=== PATIENT | male | born 1990 | race Caucasian/White ===

== ENCOUNTER 2016-11-07 19:26 | Emergency (ER) | payer MEDICAID ==
[2016-11-07 19:26] VITALS: BMI 32.3
--- NOTE | 2016-11-07 19:47 | DIRPT ---
CLINICAL DATA: 25-year-old male with a history of cough and congestion. Shortness of breath. EXAM: CHEST - 2 VIEW COMPARISON: 08/04/2015 FINDINGS: Cardiomediastinal silhouette projects within normal limits in size and contour. Ill-defined opacity at the right medial base, more pronounced than the comparison study. No displaced fracture. Unremarkable appearance of the upper abdomen. IMPRESSION: Ill-defined opacity at the right medial base, worrisome for infection given the history. Signed, Lester Miller DO [facility] Electronically Signed By: Lester Miller D.O. On: 11/07/2016 19:44
[2016-11-07] MEDS ORDERED: ALBUTEROL 6.7 GM MDI INH ONE (20:04)
[2016-11-07 20:05] VITALS: BP 145/99; PULSE 89; TEMP 98.5
--- NOTE | 2016-11-07 20:07 | EDPRACDOC ---
- General Information Stated Complaint: COUGH/CONGESTION Time Seen by Provider: 11/07/16 20:01 Information Source: Patient Home Medications: Home Medications Azithromycin [Zithromax] 250 mg PO DAILY #6 tablet 11/07/16 Prednisone [Deltasone, Orasone] 20 mg PO DAILY #20 tab 11/07/16 Promethazine Dextromethorphan [Phenergan DM] 5 ml PO Q4H PRN #120 ml 11/07/16 Allergies/Adverse Reactions: Allergies Allergy/AdvReac Type Severity Reaction Status Date / Time hydrocodone Allergy Rash-Genera Verified 10/26/16 17:27 lized Latex, Natural Rubber Allergy Rash-Genera Verified 10/26/16 17:27 lized - History of Present Illness Onset: 2 weeks HPI: Pt c/o fever, chills, congestion, cough, sob, nausea x 2 weeks. Denies earache, sore throat, abd pain, changes in bowel or bladder, rash. Current Symptoms: Reports: Cough, Fever, Nasal Symptoms, Sore Throat, Nausea Shortness of Breath: Mild Cough: Reports: Productive, Yellow Rhinorrhea: Reports: Clear Ear Symptoms: Reports: Earache Fever Severity/Quality: Reports: low grade Oral Intake: Normal Urinary Output: Normal Relevant History of: Asthma Associated Signs & Symptoms:: Reports: Cough, Headache, Nasal Symptoms, Sore Throat, Nausea ED Past Medical History - History Reviewed Yes Nurses notes reviewed and agree except as marked - Patient Medical History Respiratory History: Reports: Asthma Psychological History: Denies: Depression Surgical History: Reports: Other (HIP SURGERY) - Social Medical History Smoking Status: Heavy tobacco smoker (5 or more cigarettes/day or daily pipe/ cigar) ETOH: None Substance Abuse: None EDM Review of Systems - Review of Systems Constitutional: Fever Ears: No Symptoms Reported. negative: Pain, Hearing Loss, Drainage, Ear Pulling Throat: No Symptoms Reported. negative: Pain, Swelling Nose: Congestion Mouth: No Symptoms Reported. negative: Pain, Drooling Respiratory: Cough, Shortness of Breath Cardiovascular: No Symptoms Reported. negative: Chest Pain, Palpitations, Syncope, Edema, Orthopnea, PND, Skin Mottling, Cyanosis Gastrointestinal: Nausea Genitourinary: No Symptoms Reported. negative: Dysuria, Hematuria, Frequency, Discharge, Bleeding, Testicular Pain, Neurological: No Symptoms Reported. negative: Headache, Dizziness, Seizure, Numbness, Weakness, Speech Difficulty, Gait Difficulty Musculoskeletal: No Symptoms Reported. negative: Neck, Chestwall, Ribs, Back, Shoulder, Arm, Elbow, Forearm, Wrist, Hand, Pelvis, Hip, Femur, Knee, Leg, Ankle , Foot Integumentary: No Symptoms Reported. negative: Itching, Rash, Bruising, Wound Allergic/Immunologic: No Symptoms Reported. negative: Hives, Itching Hematologic: No Symptoms Reported. negative: Lymphadenopathy, Easy Bruising, Easy Bleeding Psychiatric: No Symptoms Reported. negative: Anxiety, Depression, Hallucinations, Insomnia, Suicidal - Physical Exam Constitutional: Alert Oriented to: Time, Person, Place Last recorded Vital Signs: Last Vital Signs Temp 98.5 F 11/07/16 20:03 Pulse 89 11/07/16 20:03 Resp 20 11/07/16 20:03 BP 145/99 11/07/16 20:03 Pulse Ox 97 11/07/16 20:03 Oxygen Pulse Oxygen Saturation 97 O2 Device Oxygen Flow Rate Fraction of Inspired Oxygen ( FIO2) - HEENT Head: Normal ( normocephalic) Eye Exam: Normal (PERRL, EOMI, Sclera white) Oropharynx: Normal (Pharynx:Moist without exudate,Gums-no swelling) Tympanic Membrane: Normal ENT EAC: Normal Nose: Congestion Neck: Normal (FROM, trachea at midline) - Respiratory/Cardiovascular Respiratory: Rales Cardiovascular: Normal - GI Auscultation: Normal (NABS) Palpation: Normal (Soft,No rebound or guarding, non distended) Tenderness: Non tender - Musculoskeletal Back: Normal (Non-Tender) Extremities: Normal (Normal tone, Pulses 2+ No cyanosis or edema, FROM) - Integumentary Skin: Normal, Warm, Dry Lymphatics: Normal (no adenopathy) - Neurologic Memory Impaired: Normal Motor Function: Normal (Normal tone, Pulses 2+ No cyanosis or edema, FROM) Mood Description: Normal Perception: Normal - Differential Diagnosis Bronchitis, Pneumonia, URI - Diagnostic Imaging Chest Image interpreted by: Radiologist IMPRESSION: Ill-defined opacity at the right medial base, worrisome for infection given the history. Decision Time to Discharge: 20:08 - Departure Disposition: Home Condition: Good Final Diagnosis: Pneumonia Qualifiers: Pneumonia type: due to unspecified organism Laterality: right Lung location: lower lobe of lung Qualified Code(s): J18.1 - Lobar pneumonia, unspecified organism Instructions: Community Acquired Pneumonia (ED) Education/Counseling Given To: Patient Education/Counseling Given Regarding: Diagnosis, Treatment, Follow Up Referrals: None,No Provider [Primary Care Provider] - One Week Trip Sanchez II, MD [Staff Physician] - One Week Prescriptions: Azithromycin [Zithromax] 250 mg PO DAILY #6 tablet Prednisone [Deltasone, Orasone] 20 mg PO DAILY #20 tab Promethazine Dextromethorphan [Phenergan DM] 5 ml PO Q4H PRN #120 ml PRN Reason: Cough Additional Instructions: Albuterol MDI 1-2 puffs every 4-6 hours as needed for shortness of breath.
== END 2016-11-07 20:45 | disposition home or self-care (01) ==
LOC: EDMC 19:26
DX: J18.1 Lobar pneumonia, unspecified organism (principal); J45.909 Unspecified asthma, uncomplicated; F17.200 Nicotine dependence, unspecified, uncomplicated
CPT/HCPCS: 71020; 94640; 99283; J3490